=== PATIENT | male | born 1965 | race Caucasian/White ===

== ENCOUNTER 2020-05-19 09:22 | Day surgery (SDC) | payer OTHER ==
[2020-05-16 10:38] VITALS: BMI 24.0
[2020-05-19] MEDS ORDERED: MIDAZOLAM HCL 2 MG/2 ML SINGLE DOSE VIAL ONE (10:07)
[2020-05-19] MEDS ORDERED: PROPOFOL 20 ML ONE (10:07)
[2020-05-19] MEDS ORDERED: SUCCINYLCHOLINE CHLORIDE 200 MG/10 ML SYRINGE ONE (10:07)
[2020-05-19] MEDS ORDERED: BUPIVACAINE HCL/PF 0.5% (5 MG/ML) 30 ML VIAL IJ ONE (10:45)
[2020-05-19] MEDS ORDERED: PROMETHAZINE HCL 25 MG/1 ML VIAL IVPUSH PRN (11:09)
[2020-05-19] MEDS ORDERED: oxyCODONE HCL 5 MG TABLET PO PRN ×2 (11:09)
[2020-05-19] MEDS ORDERED: ONDANSETRON 4 MG/2 ML VIAL IVPUSH PRN (11:09)
[2020-05-19 12:25] VITALS: TEMP 97.7
[2020-05-19 12:53] VITALS: BP 112/67; PULSE 73
== END 2020-05-19 13:20 | disposition home or self-care (01) ==
LOC: FASU 09:22
PROVIDERS: ATTEND Orthopaedic Surgery Sports Medicine
PROC: 01N50ZZ Release Median Nerve, Open Approach (ICD-10-PCS; principal; 2020-05-19 10:31)
DX: G56.01 Carpal tunnel syndrome, right upper limb (principal); E11.9 Type 2 diabetes mellitus without complications; Z79.4 Long term (current) use of insulin
CPT/HCPCS: 82962; 94760

== ENCOUNTER 2020-09-05 05:00 | Day surgery (SDC) | payer OTHER ==
[2020-08-31 15:50] VITALS: BMI 24.8
[2020-09-05 08:57] VITALS: TEMP 97.5
[2020-09-05 09:49] VITALS: BP 121/74; PULSE 70
== END 2020-09-05 10:15 | disposition home or self-care (01) ==
LOC: JASU-ENDO 05:00
PROVIDERS: ATTEND Internal Medicine Gastroenterology
PROC: 0DBL8ZX Excision of Transverse Colon, Via Natural or Artificial Opening Endoscopic, Diagnostic (ICD-10-PCS; principal; 2020-09-05 08:00)
DX: Z12.11 Encounter for screening for malignant neoplasm of colon (principal); K63.5 Polyp of colon; K64.8 Other hemorrhoids; K59.89 Other specified functional intestinal disorders
CPT/HCPCS: 82962; 88305-TC

== ENCOUNTER 2022-02-13 03:50 | Inpatient (IN) | payer OTHER ==
[2022-02-13] MEDS ORDERED: LACTATED RINGERS SOLUTION 1,000 ML/1,000 ML INFUS.BAG IV STA (03:54)
[2022-02-13] MEDS ORDERED: INSULIN REGULAR HUMAN 100 UNITS/ML *VIAL IVPUSH ONE (03:57)
[2022-02-13] MEDS ORDERED: INSULIN REGULAR 100 UNITS in SODIUM CHLORIDE 99 ML IVPB SCH ×2 (04:00→06:00)
[2022-02-13 04:40] LABS: VENOUS BASE EXCESS -27.2 mmol/L (-2-2); VENOUS O2 SATURATION 78.3 % (70-80); VENOUS PCO2 18.6 mmHg (38-52)
[2022-02-13 04:43] LABS: VENOUS PH 6.937 (7.310-7.410)
[2022-02-13 05:04] LABS: INR 0.99 (0.83-1.09); PROTHROMBIN TIME (PATIENT) 11.4 SEC (9.7-13.0)
[2022-02-13 05:07] LABS: ACTIVATED PTT 27.7 SECONDS (25.2-36.5); CHLORIDE 90 mmol/L (98-107); SODIUM 130 mmol/L (136-145)
[2022-02-13 05:10] LABS: BLOOD UREA NITROGEN 60.9 mg/dL (7-18); CALCIUM 9.3 mg/dL (8.5-10.1); CO2 4 mmol/L (21-32); LIPASE 28 U/L (73-393); MAGNESIUM 2.8 mg/dL (1.8-2.4)
[2022-02-13 05:13] LABS: SGOT/AST 34 U/L (15-37); SGPT/ALT 48 U/L (13-61)
[2022-02-13 05:14] LABS: BILIRUBIN,TOTAL 0.6 mg/dL (0.2-1); TOT PROT 7.1 g/dl (6.4-8.2)
[2022-02-13 05:15] LABS: ALK PHOS 104 U/L (45-117)
[2022-02-13 05:17] LABS: ANION GAP 36 MMOL/L (8-16); GLUCOSE,RANDOM 1210 mg/dL (74-106)
[2022-02-13] MEDS ORDERED: SODIUM BICARBONATE 8.4% 50 MEQ/50 ML VIAL IV ONE (05:18)
[2022-02-13 05:22] LABS: BASO % 0.4 % (0-2.0); EOS % 0.1 % (0-4.5); HEMATOCRIT 48.2 % (35.4-49); HEMOGLOBIN 13.4 GM/dL (11.7-16.9); LYMPH % 15.2 % (8-40); MCH 28.7 pg (25.7-33.7); MCHC 27.9 g/dl (32.0-35.9); MEAN CELL VOLUME 102.9 fl (80-96); MEAN PLT VOLUME 9.7 fl (7.5-11.1); MONO % 1.7 % (3.8-10.2); NEUT % 82.6 % (42.8-82.8); PLATELET COUNT 297 10^3/uL (134-434); RBC 4.68 M/mm3 (4.00-5.60); RDW 14.4 % (11.9-15.9); WHITE BLOOD COUNT 12.2 K/mm3 (4.0-10.0)
[2022-02-13] MEDS ORDERED: SODIUM BICARBONATE 8.4% - 50 ML ONE (05:22)
[2022-02-13 05:43] LABS: EPI CELLS 2 /uL (0-25.1); HYALINE CASTS 1 /uL (0-3.1); URINE APPEARANCE CLEAR; URINE BACTERIA 5 /uL (0-1359); URINE BILIRUBIN NEGATIVE (NEGATIVE); URINE COLOR YELLOW; URINE GLUCOSE (UA) 3+ (NEGATIVE); URINE KETONE 3+ (NEGATIVE); URINE LEUK ESTERASE NEGATIVE (NEGATIVE); URINE NITRITE NEGATIVE (NEGATIVE); URINE PROTEIN TRACE (NEGATIVE); URINE RBC 13 /uL (0-23.9); URINE UROBILINOGEN 0.2 mg/dL (0.2-1.0); URINE WBC 4 /uL (0-25.8)
[2022-02-13] MEDS ORDERED: LACTATED RINGERS SOLUTION 1,000 ML/1,000 ML INFUS.BAG IV SCH (06:00)
[2022-02-13] MEDS: HEPARIN NA (PORCINE) 5,000 UNITS/ML 1ML VIAL SQ SCH ×2 (07:27→13:34)
[2022-02-13] MEDS ORDERED: SODIUM CHLORIDE 0.45% 1,000 ML IV SCH (07:45)
[2022-02-13] MEDS ORDERED: CALCIUM GLUCONATE 10% - 1,000 MG/10 ML VIAL IVPB ONE (07:46)
[2022-02-13] MEDS ORDERED: PNEUMOC 20-VAL CONJ-DIP CRM/PF 0.5 ML SYRINGE IM ONE (09:37)
[2022-02-13] MEDS ORDERED: SODIUM ZIRCONIUM CYCLOSILICATE (LOKELMA) 5 GM PACKET PO SCH (10:00)
[2022-02-13] MEDS ORDERED: SODIUM CHLORIDE 1,000 ML IV SCH (10:00)
[2022-02-13] MEDS ORDERED: FLU VACC QS2022-23(6MOS UP)/PF 60 MCG/0.5 ML SYRINGE IM ONE (10:00)
[2022-02-13 11:02] LABS: CHLORIDE 108 mmol/L (98-107); SODIUM 141 mmol/L (136-145)
[2022-02-13 11:03] LABS: CALCIUM 9.7 mg/dL (8.5-10.1)
[2022-02-13 11:04] LABS: ANION GAP 17 MMOL/L (8-16); BLOOD UREA NITROGEN 51.8 mg/dL (7-18); CO2 17 mmol/L (21-32)
[2022-02-13 11:07] LABS: CREATININE 2.2 mg/dL (0.55-1.3)
[2022-02-13 11:16] LABS: GLUCOSE,RANDOM 572 mg/dL (74-106)
[2022-02-13] MEDS ORDERED: SODIUM CHLORIDE 0.9%/KCL 20 MEQ/1,000 ML INFUS.BAG IV SCH (11:45)
[2022-02-13] MEDS ORDERED: KCL 10 MEQ IVPB 10 MEQ/100 ML INFUS.BAG IVPB SCH (11:45)
[2022-02-13 12:56] LABS: CHLORIDE 112 mmol/L (98-107); SODIUM 144 mmol/L (136-145)
[2022-02-13 12:58] LABS: ALBUMIN 3.6 g/dl (3.4-5.0); ANION GAP 15 MMOL/L (8-16); BLOOD UREA NITROGEN 47.5 mg/dL (7-18); CO2 17 mmol/L (21-32); MAGNESIUM 2.7 mg/dL (1.8-2.4)
[2022-02-13 13:01] LABS: PHOSPHOROUS 2.8 mg/dL (2.5-4.9); SGPT/ALT 49 U/L (13-61)
[2022-02-13 13:03] LABS: BILIRUBIN,TOTAL 0.4 mg/dL (0.2-1); SGOT/AST 38 U/L (15-37); TOT PROT 6.6 g/dl (6.4-8.2)
[2022-02-13 13:04] LABS: ALK PHOS 94 U/L (45-117)
[2022-02-13 13:06] LABS: GLUCOSE,RANDOM 460 mg/dL (74-106)
[2022-02-13] MEDS ORDERED: HEPARIN NA (PORCINE) 5,000 UNITS/ML 1ML VIAL IVPUSH PRN ×2 (13:42)
[2022-02-13] MEDS ORDERED: HEPARIN NA (PORCINE) 5,000 UNITS/ML 1ML VIAL IVPUSH ONE (13:42)
[2022-02-13] MEDS ORDERED: INSULIN (LEVEMIR) 100 UNITS/ML UNITS SQ ONE ×2 (13:53→14:15)
[2022-02-13] MEDS: HEPARIN SOD,PORK IN 0.45% NACL 25,000 UNITS/500 ML INFUS.BAG IVPB SCH (14:53)
[2022-02-13] MEDS: INSULIN SLIDING SCALE (NOVOLOG) 1 VIAL SQ SCH ×2 (16:36→21:31)
[2022-02-13] MEDS: INSULIN (NOVOLOG) ASPART 100 UNITS/ML 10ML VIAL SQ SCH (16:39)
[2022-02-13 18:37] LABS: BLOOD UREA NITROGEN 40.6 mg/dL (7-18); CALCIUM 9.1 mg/dL (8.5-10.1); MAGNESIUM 2.2 mg/dL (1.8-2.4)
[2022-02-13 18:41] LABS: CREATININE 1.5 mg/dL (0.55-1.3)
[2022-02-13 19:19] LABS: PHOSPHOROUS 2.7 mg/dL (2.5-4.9)
[2022-02-13] MEDS: INSULIN (LEVEMIR) 100 UNITS/ML UNITS SQ SCH (21:31)
[2022-02-13] MEDS: ATORVASTATIN CA 40 MG TABLET (FP) PO SCH (21:31)
[2022-02-13 22:21] LABS: CALCIUM 8.8 mg/dL (8.5-10.1)
[2022-02-13 22:22] LABS: BLOOD UREA NITROGEN 32.8 mg/dL (7-18); MAGNESIUM 2.3 mg/dL (1.8-2.4)
[2022-02-13 22:25] LABS: CREATININE 1.4 mg/dL (0.55-1.3)
[2022-02-14] MEDS ORDERED: BENZOCAINE/MENTH/CETYLPYRD CL 1 EACH LOZENGE MM PRN (03:13)
[2022-02-14] MEDS: INSULIN (NOVOLOG) ASPART 100 UNITS/ML 10ML VIAL SQ SCH ×3 (06:28→18:16)
[2022-02-14] MEDS: INSULIN (LEVEMIR) 100 UNITS/ML UNITS SQ SCH ×2 (06:28→22:55)
[2022-02-14] MEDS: INSULIN SLIDING SCALE (NOVOLOG) 1 VIAL SQ SCH ×4 (06:29→22:55)
[2022-02-14 07:20] LABS: BASO % 0.1 % (0-2.0); HEMATOCRIT 40.6 % (35.4-49); HEMOGLOBIN 13.8 GM/dL (11.7-16.9); LYMPH % 9.4 % (8-40); MCH 29.8 pg (25.7-33.7); MEAN CELL VOLUME 87.7 fl (80-96); MEAN PLT VOLUME 7.9 fl (7.5-11.1); MONO % 12.5 % (3.8-10.2); PLATELET COUNT 222 10^3/uL (134-434); RBC 4.63 M/mm3 (4.00-5.60); RDW 13.7 % (11.9-15.9); WHITE BLOOD COUNT 9.1 K/mm3 (4.0-10.0)
[2022-02-14 07:49] LABS: INR 0.89 (0.83-1.09); PROTHROMBIN TIME (PATIENT) 10.2 SEC (9.7-13.0)
[2022-02-14 08:33] LABS: ACTIVATED PTT 160.7 SECONDS (25.2-36.5)
[2022-02-14 08:55] LABS: BLOOD UREA NITROGEN 23.9 mg/dL (7-18)
[2022-02-14 08:56] LABS: ALBUMIN 3.5 g/dl (3.4-5.0)
[2022-02-14 08:58] LABS: MAGNESIUM 2.2 mg/dL (1.8-2.4)
[2022-02-14 08:59] LABS: CREATININE 1.2 mg/dL (0.55-1.3); PHOSPHOROUS 1.9 mg/dL (2.5-4.9)
[2022-02-14 09:00] LABS: TOT PROT 6.4 g/dl (6.4-8.2)
[2022-02-14] MEDS ORDERED: INSULIN (LEVEMIR) 100 UNITS/ML UNITS SQ ONE (09:00)
[2022-02-14 09:01] LABS: BILIRUBIN,TOTAL 0.4 mg/dL (0.2-1)
[2022-02-14] MEDS ORDERED: MAGNESIUM SULF 50% (8.12 MEQ/2 ML-1 GM VIAL) IVPB ONE (09:18)
[2022-02-14] MEDS: METOPROLOL TARTRATE 25 MG TABLET (FP) PO SCH ×2 (11:10→22:55)
[2022-02-14] MEDS: SODIUM CHLORIDE 0.45% 1,000 ML IV SCH (14:10)
[2022-02-14] MEDS ORDERED: SODIUM PHOSPHATE IVPB ONE (15:00)
[2022-02-14] MEDS ORDERED: SODIUM CHLORIDE IVPB ONE (15:00)
[2022-02-14 15:21] VITALS: BMI 24.2
[2022-02-14] MEDS: HEPARIN SOD,PORK IN 0.45% NACL 25,000 UNITS/500 ML INFUS.BAG IVPB SCH (19:16)
[2022-02-14] MEDS ORDERED: INSULIN (LEVEMIR) 100 UNITS/ML UNITS SQ SCH (22:00)
[2022-02-14] MEDS: ATORVASTATIN CA 40 MG TABLET (FP) PO SCH (22:55)
[2022-02-15] MEDS: INSULIN (NOVOLOG) ASPART 100 UNITS/ML 10ML VIAL SQ SCH ×3 (07:50→16:09)
[2022-02-15] MEDS: INSULIN (LEVEMIR) 100 UNITS/ML UNITS SQ SCH ×2 (07:50→21:13)
[2022-02-15] MEDS: INSULIN SLIDING SCALE (NOVOLOG) 1 VIAL SQ SCH ×4 (07:51→21:12)
[2022-02-15 08:13] LABS: BASO % 0.3 % (0-2.0); EOS % 1.5 % (0-4.5); HEMATOCRIT 37.7 % (35.4-49); HEMOGLOBIN 13.3 GM/dL (11.7-16.9); LYMPH % 15.9 % (8-40); MCH 30.5 pg (25.7-33.7); MCHC 35.2 g/dl (32.0-35.9); MEAN CELL VOLUME 86.5 fl (80-96); MEAN PLT VOLUME 7.7 fl (7.5-11.1); MONO % 9.6 % (3.8-10.2); NEUT % 72.7 % (42.8-82.8); PLATELET COUNT 169 10^3/uL (134-434); RBC 4.36 M/mm3 (4.00-5.60); RDW 13.5 % (11.9-15.9); WHITE BLOOD COUNT 6.9 K/mm3 (4.0-10.0)
[2022-02-15 08:24] LABS: ALBUMIN 3.2 g/dl (3.4-5.0); BLOOD UREA NITROGEN 10.1 mg/dL (7-18); CALCIUM 8.6 mg/dL (8.5-10.1); MAGNESIUM 1.6 mg/dL (1.8-2.4)
[2022-02-15 08:28] LABS: CREATININE 0.8 mg/dL (0.55-1.3); PHOSPHOROUS 2.7 mg/dL (2.5-4.9)
[2022-02-15 08:29] LABS: BILIRUBIN,TOTAL 0.6 mg/dL (0.2-1); TOT PROT 5.9 g/dl (6.4-8.2)
[2022-02-15] MEDS: METOPROLOL TARTRATE 25 MG TABLET (FP) PO SCH (09:23)
[2022-02-15] MEDS ORDERED: ATORVASTATIN CA 80 MG TABLET (FP) PO SCH (10:04)
[2022-02-15] MEDS: ACETAMINOPHEN 1000 MG/100 ML BAG IVPB PRN (10:20)
[2022-02-15] MEDS: CLOPIDOGREL BISULFATE 75 MG TABLET (FP) PO SCH (10:20)
[2022-02-15 10:29] VITALS: RESP 18
[2022-02-15] MEDS: SODIUM CHLORIDE 0.45% 1,000 ML IV SCH (14:11)
[2022-02-15] MEDS ORDERED: BENZOCAINE/MENTH/CETYLPYRD CL 1 EACH LOZENGE MM PRN (17:44)
[2022-02-15] MEDS ORDERED: SODIUM CHLORIDE 0.45% 1,000 ML IV SCH (17:44)
[2022-02-15] MEDS: METOPROLOL TARTRATE 50 MG TABLET (FP) PO SCH (21:14)
[2022-02-16] MEDS: INSULIN SLIDING SCALE (NOVOLOG) 1 VIAL SQ SCH ×3 (06:49→17:20)
[2022-02-16] MEDS: INSULIN (NOVOLOG) ASPART 100 UNITS/ML 10ML VIAL SQ SCH ×3 (06:51→17:20)
[2022-02-16] MEDS: INSULIN (LEVEMIR) 100 UNITS/ML UNITS SQ SCH (06:51)
[2022-02-16] MEDS: ACETAMINOPHEN 1000 MG/100 ML BAG IVPB PRN (08:27)
[2022-02-16] MEDS ORDERED: SODIUM CHLORIDE NASAL SPRAY 44 ML BOTTLE NS PRN (09:09)
[2022-02-16] MEDS: METOPROLOL TARTRATE 50 MG TABLET (FP) PO SCH (09:13)
[2022-02-16] MEDS: CLOPIDOGREL BISULFATE 75 MG TABLET (FP) PO SCH (09:13)
[2022-02-16 15:53] VITALS: BP 142/89; PULSE 94; TEMP 99
== END 2022-02-16 19:12 | disposition home or self-care (01) | DRG 420 ==
LOC: JER 03:50 → JERBED 04:19 → JICU 06:20 → J8W 02-15 17:42
PROVIDERS: ADMIT Internal Medicine Pulmonary Disease; ATTEND Internal Medicine
DX: E10.10 Type 1 diabetes mellitus with ketoacidosis without coma (principal); U07.1 COVID-19; I21.A1 Myocardial infarction type 2; E87.1 Hypo-osmolality and hyponatremia; N17.9 Acute kidney failure, unspecified; E87.5 Hyperkalemia; E78.5 Hyperlipidemia, unspecified; E86.0 Dehydration
CPT/HCPCS: 0241U-QW; 36415; 71045-TC-FY; 80048; 80053; 81003; 82010; 82570; 82803; 82962; 83036; 83605; 83690; 83735; 84100; 84300; 84484; 85025; 85610; 85730; 86140; 90677; 93005; 93010; 93306-TC; 97116-GP; 97162-GP; 99291; 99292; C9803-CS; G0008; J1644; Q2036; U0003; U0005

== ENCOUNTER 2022-03-16 11:23 | Emergency (ER) | payer OTHER ==
[2022-03-16 11:36] VITALS: BP 158/72; PULSE 86; RESP 16; TEMP 98.7; BMI 25.5
[2022-03-16] MEDS ORDERED: CEPHALEXIN MONOHYDRATE 500 MG CAPSULE (UD) PO ONE (15:13)
== END 2022-03-16 15:27 | disposition admitted as inpatient to this hospital (09) ==
LOC: JER 11:23
DX: L03.116 Cellulitis of left lower limb (principal); L02.416 Cutaneous abscess of left lower limb
CPT/HCPCS: 73590-TC-LT-FY; 73610-TC-LT-FY; 73630-TC-LT; 93970-TC; 99285-25

== ENCOUNTER 2023-12-01 05:58 | Day surgery (SDC) | payer OTHER ==
[2023-11-28 12:44] VITALS: BMI 24.5
[2023-12-01] MEDS ORDERED: PROPOFOL 40 ML ONE (07:00)
[2023-12-01] MEDS ORDERED: MIDAZOLAM HCL 2 MG/2 ML SINGLE DOSE VIAL ONE (07:00)
[2023-12-01] MEDS ORDERED: BUPIVACAINE HCL/PF 0.25% (2.5MG/ML) 10 ML VIAL ONE (07:13)
[2023-12-01] MEDS ORDERED: ROPIVACAINE HCL/PF 100 MG/20 ML VIAL ONE (07:21)
[2023-12-01] MEDS ORDERED: ceFAZolin SODIUM 1 GM VIAL ONE (07:55)
[2023-12-01] MEDS ORDERED: ONDANSETRON 4 MG/2 ML VIAL ONE (07:55)
[2023-12-01] MEDS ORDERED: DEXAMETHASONE SOD PHOSPHATE 4 MG/1 ML VIAL ONE (07:55)
[2023-12-01] MEDS ORDERED: PROPOFOL 20 ML ONE ×2 (08:49→08:50)
[2023-12-01] MEDS ORDERED: ONDANSETRON 4 MG/2 ML VIAL IVPUSH PRN (09:47)
[2023-12-01] MEDS ORDERED: METOPROLOL TARTRATE 5 MG/5 ML VIAL IVPUSH PRN (09:48)
[2023-12-01] MEDS ORDERED: LACTATED RINGERS SOLUTION 1,000 ML IV SCH (10:00)
[2023-12-01 11:32] VITALS: TEMP 97
[2023-12-01 12:13] VITALS: BP 123/72; PULSE 63; RESP 20
== END 2023-12-01 12:00 | disposition home or self-care (01) ==
LOC: FASU 05:58
PROVIDERS: ATTEND Orthopaedic Surgery Sports Medicine
PROC: 0LS40ZZ Reposition Left Upper Arm Tendon, Open Approach (ICD-10-PCS; principal; 2023-12-01 08:14)
DX: S45.212A Laceration of axillary or brachial vein, left side, initial encounter (principal); X58.XXXA Exposure to other specified factors, initial encounter; Y93.9 Activity, unspecified; Y92.9 Unspecified place or not applicable
CPT/HCPCS: 73090-TC-LT-FY; 82962; 94760; C1713